=== PATIENT | male | born 1945 | race Caucasian/White ===

== ENCOUNTER 2017-07-26 09:03 | Inpatient (IN) | payer OTHER, MEDICARE ==
[2017-07-20 09:51] VITALS: BP 165/89
[~2017-07-26] VITALS: Ht 179.1 cm; Wt 113.0 kg
[~2017-07-26 09:03] MED LIST: BACITRACIN 50,000 UNIT ONE; BUPIVACAINE/PF 0.25% ONE; BUPIVACAINE/PF 0.5% ONE; EPINEPHRINE 1 MG/ML, 1ML ONE; LIDOCAINE 1%, 20ML ONE; LISI5TAB7 PO; METH750T2 PO; OXYC-307 PO; THROMBIN 5,000 UNIT VIAL TP ONE; VANCOMYCIN 1,000 MG ONE; VITAMIN D PO
[2017-07-26] MEDS ORDERED: LIDOCAINE 1%, 2ML ONE (09:36)
[2017-07-26] MEDS ORDERED: LACTATED RINGERS 1,000 ML IV SCH (09:52)
[2017-07-26] MEDS ORDERED: AZIT500T2 PO (09:59)
[2017-07-26] MEDS ORDERED: LIDOCAINE 1%, 2ML SQ PRN (10:00)
[2017-07-26] MEDS ORDERED: FENTANYL PF 100 MCG/2ML ONE ×3 (11:39→14:41)
[2017-07-26] MEDS ORDERED: REMIFENTANIL 2 MG ONE (11:39)
[2017-07-26] MEDS ORDERED: morphine SULFATE/PF 1 MG/ML, 10ML ONE (11:39)
[2017-07-26] MEDS ORDERED: PROPOFOL 10 MG/ML, 20ML ONE (11:45)
[2017-07-26] MEDS ORDERED: LIDOCAINE-MPF 2% ,5ML ONE (11:45)
[2017-07-26] MEDS ORDERED: ROCURONIUM 10 MG/ML,10ML ONE (11:45)
[2017-07-26] MEDS ORDERED: PHENYLEPHRINE 10 MG/ML ONE (11:52)
[2017-07-26] MEDS ORDERED: CEFAZOLIN 1,000 MG ONE ×2 (12:17)
[2017-07-26] MEDS ORDERED: DEXAMETHASONE 4 MG/ML, 1ML ONE ×3 (12:17)
[2017-07-26] MEDS ORDERED: HYDROcodone/APAP 7.5-325MG/15ML UDC PO PRN (13:30)
[2017-07-26] MEDS ORDERED: OXYcodone 5 MG/5 ML ORAL.SOL UDC PO PRN (13:30)
[2017-07-26] MEDS ORDERED: MEPERIDINE/PF 25MG/0.5ML IVPush PRN (13:30)
[2017-07-26] MEDS ORDERED: MIDAZOLAM 1 MG/ML, 2ML IV PRN (13:30)
[2017-07-26] MEDS ORDERED: ONDANSETRON 2MG/ML, 2ML IVPush PRN (13:30)
[2017-07-26] MEDS ORDERED: ACETAMINOPHEN 325 MG TABLET PO PRN (13:30)
[2017-07-26] MEDS ORDERED: ONDANSETRON 2MG/ML, 2ML ONE (13:51)
[2017-07-26] MEDS ORDERED: OXYcodone 5 MG/5 ML ORAL.SOL UDC ONE (14:41)
[2017-07-26] MEDS ORDERED: ACETAMINOPHEN 650 MG/20.3 ML UDC ONE (14:41)
[2017-07-26] MEDS: FENTANYL PF 100 MCG/2ML IV PRN ×3 (14:45→15:21)
[2017-07-26] MEDS ORDERED: HYDROmorphone 2 MG/ML, 1ML ONE (14:58)
[2017-07-26] MEDS: HYDROmorphone 1 MG/ML, 1ML IV PRN ×4 (15:00→16:12)
[2017-07-26] MEDS ORDERED: HYDROmorphone PCA 30 MG/30 ML ONE (15:11)
[2017-07-26] MEDS: DIAZEPAM 5 MG/ML, 2ML IVPush PRN ×3 (15:14→17:17)
[2017-07-26] MEDS ORDERED: HYDROmorphone PCA 30 MG/30 ML IV PRN ×2 (15:30→18:00)
[2017-07-26] MEDS ORDERED: BISACODYL 10 MG SUPP PR PRN (17:00)
[2017-07-26] MEDS ORDERED: DIPHENHYDRAMINE 50 MG/ML, 1ML IVPush PRN (17:00)
[2017-07-26] MEDS ORDERED: DIPHENHYDRAMINE 50 MG/ML, 1ML IM PRN (17:00)
[2017-07-26] MEDS ORDERED: HYDROmorphone 2 MG/ML, 1ML IM PRN (17:00)
[2017-07-26] MEDS ORDERED: DIPHENHYDRAMINE 50 MG CAPSULE PO PRN (17:00)
[2017-07-26] MEDS ORDERED: LABETALOL 5MG/ML, 20ML IV PRN (17:00)
[2017-07-26] MEDS ORDERED: MAGNESIUM HYDROXIDE 8%, 30ML UDC PO PRN (17:00)
[2017-07-26] MEDS ORDERED: OXYcodone IR 5MG TABLET PO PRN ×2 (17:00)
[2017-07-26] MEDS: D5%-0.9% NACL+KCL 20MEQ 1,000 ML IV SCH (17:00)
[2017-07-26] MEDS ORDERED: PROMETHAZINE 25 MG SUPP PR PRN (17:00)
[2017-07-26] MEDS ORDERED: PROMETHAZINE 25 MG/ML, 1ML IM PRN (17:00)
[2017-07-26] MEDS ORDERED: METHOCARBAMOL 750 MG TABLET PO PRN (17:00)
[2017-07-26 19:12] VITALS: BP 121/76
[2017-07-26] MEDS: CEFAZOLIN PMX 1GM/50ML 50 ML IVPB SCH (20:32)
[2017-07-27 00:13] VITALS: BP 102/67
[2017-07-27] MEDS: D5%-0.9% NACL+KCL 20MEQ 1,000 ML IV SCH ×2 (01:00→09:00)
[2017-07-27 04:08] VITALS: BP 105/63
[2017-07-27] MEDS: CEFAZOLIN PMX 1GM/50ML 50 ML IVPB SCH (04:45)
[2017-07-27] MEDS: OXYcodone IR 5MG TABLET PO PRN ×3 (06:29→14:24)
[2017-07-27 07:20] VITALS: BP 130/83
[2017-07-27] MEDS ORDERED: SENNA/DOCUSATE TABLET PO SCH (09:00)
[2017-07-27] MEDS ORDERED: LISINOPRIL 5 MG TABLET PO SCH (09:00)
[2017-07-27 14:21] VITALS: BP 127/78
== END 2017-07-27 14:44 | disposition home or self-care (01) | DRG 517 ==
LOC: OUT 09:03 → 4NOR 16:29 → OUT 16:36 → 4NOR 16:37 → DCLOUNGE 07-27 14:29
PROVIDERS: ADMIT Orthopaedic Surgery Orthopaedic Surgery of the Spine; ATTEND Orthopaedic Surgery Orthopaedic Surgery of the Spine
PROC: 4A11X4G Monitoring of Peripheral Nervous Electrical Activity, Intraoperative, External Approach (ICD-10-PCS; 2017-07-26)
PROC: 0QB00ZZ Excision of Lumbar Vertebra, Open Approach (ICD-10-PCS; principal; 2017-07-26 11:00)
DX: M43.16 Spondylolisthesis, lumbar region (principal); E66.01 Morbid (severe) obesity due to excess calories; M48.061 Spinal stenosis, lumbar region without neurogenic claudication; M54.16 Radiculopathy, lumbar region; N40.1 Benign prostatic hyperplasia with lower urinary tract symptoms; R33.8 Other retention of urine
CPT/HCPCS: 72100; J0171; J0690; J1100; J1170; J2274; J2405; J2704; J3010; J3360; J3370; J3490; J2370; J3480; J7120